=== PATIENT | female | born 1970 | race Caucasian/White ===

== ENCOUNTER 2024-09-08 10:26 | Outpatient (CLI) | payer MEDICAID ==
--- NOTE | 2024-09-08 11:42 | RADIOLOGY REPORT ---
CLINICAL INDICATION: RIGHT HAND INJURY; PAIN IN RIGHT WRIST AND THUMB TECHNIQUE: 4 radiographic views of the right wrist were obtained. Comparison: None FINDINGS/IMPRESSION: There is no evidence of acute fracture or dislocation. The visualized joint space is well maintained. The alignment is anatomical. There is no radiopaque foreign body.
== END 2024-09-08 23:59 | disposition home or self-care (01) ==
LOC: RAD 10:26
PROVIDERS: ATTEND Family Medicine
DX: M25.531 Pain in right wrist (principal)
CPT/HCPCS: 73110